=== PATIENT | female | born 1975 | race African-American/Black ===

== ENCOUNTER 2018-10-06 17:19 | Emergency (ER) | payer OTHER ==
[~2018-10-06] VITALS: Ht 154.9 cm; Wt 62.0 kg
[2018-10-06 17:22] VITALS: BP 118/84
== END 2018-10-07 01:43 | disposition left against medical advice (07) ==
LOC: ER 18:09
DX: Z53.21 Procedure and treatment not carried out due to patient leaving prior to being seen by health care provider (principal); Z88.3 Allergy status to other anti-infective agents
CPT/HCPCS: 93005

== ENCOUNTER 2020-03-05 19:45 | Emergency (ER) | payer OTHER ==
[~2020-03-05] VITALS: Ht 172.7 cm; Wt 72.0 kg
[2020-03-05] MEDS ORDERED: METHOCARBAMOL 750MG TABLET PO STA (23:20)
[2020-03-05] MEDS ORDERED: ONDANSETRON HCL 4MG/2ML INJ IV STA (23:20)
[2020-03-05] MEDS ORDERED: FENTANYL CITRATE/PF 50MCG/ML 2ML VIAL IV ONE (23:30)
[2020-03-05] MEDS ORDERED: METHOCARBAMOL 500MG TABLET PO SCH (23:30)
[2020-03-06] MEDS ORDERED: MIDAZOLAM HCL 2 MG/2 ML VIAL IV ONE (01:00)
[2020-03-06 01:17] VITALS: BP 99/54
== END 2020-03-06 02:02 | disposition home or self-care (01) ==
LOC: ER 19:45
DX: S76.011A Strain of muscle, fascia and tendon of right hip, initial encounter (principal); Z90.49 Acquired absence of other specified parts of digestive tract; Z88.1 Allergy status to other antibiotic agents; X58.XXXA Exposure to other specified factors, initial encounter; Y93.89 Activity, other specified; Y92.018 Other place in single-family (private) house as the place of occurrence of the external cause
CPT/HCPCS: 73502; 96374; 96375; 99284; J2405; J3010; J2250